=== PATIENT | female | born 1965 | race Asian ===

== ENCOUNTER 2017-04-25 13:27 | Emergency (ER) | payer MEDICAID ==
[2017-04-25] MEDS ORDERED: LORazepam 2 MG/ML SDV IVPUSH ONE (13:41)
[2017-04-25] MEDS ORDERED: Ondansetron 4 MG/2 ML SDV IVPUSH ONE (13:41)
[2017-04-25] MEDS ORDERED: Ketorolac 30 MG/ML SDV IVPUSH ONE (13:41)
[2017-04-25] MEDS ORDERED: Sodium Chloride 0.9% 1,000 ML IV ONE (13:41)
--- NOTE | 2017-04-25 14:39 | EDM.PDOC ---
ED HPI GENERAL MEDICAL PROBLEM - General Chief Complaint: Gastrointestinal Problem Stated Complaint: HEADACHE/NAUSEA/VOMITING Time Seen by Provider: 04/25/17 13:35 Source of Information: Reports: Patient History Limitations: Reports: No Limitations - History of Present Illness INITIAL COMMENTS - FREE TEXT/NARRATIVE: History of present illness: [51-year-old female comes in complaining of nausea vomiting and the worst headache of her life. He shouldn't is Macedonian speaking and attempted to communicate with her cruz Schmitt.] Review of systems: As per history of present illness and below otherwise all systems reviewed and negative. Past medical history: As per history of present illness and as reviewed below otherwise noncontributory. Surgical history: As per history of present illness and as reviewed below otherwise noncontributory. Social history: No reported history of drug or alcohol abuse. Family history: As per history of present illness and as reviewed below otherwise noncontributory. Physical exam: HEENT: Atraumatic, normocephalic, pupils reactive, negative for conjunctival pallor or scleral icterus, mucous membranes moist, throat clear, neck supple, nontender, trachea midline. Lungs: Clear to auscultation, breath sounds equal bilaterally, chest nontender. Heart: S1S2, regular, negative for clicks, rubs, or JVD. Abdomen: Soft, nondistended, nontender. Negative for masses or hepatosplenomegaly. Negative for costovertebral tenderness. Pelvis: Stable nontender. Genitourinary: Deferred. Rectal: Deferred. Extremities: Atraumatic, negative for cords or calf pain. Neurovascular unremarkable. Neuro: Awake, alert, oriented. Cranial nerves II through XII unremarkable. Cerebellum unremarkable. Motor and sensory unremarkable throughout. Exam nonfocal. Global assessment is benign save the subjective complaint of headache upon arrival. Patient indicates after the medication that her nausea as well as the migraine was improved but not gone. Patient tested for influenza and B which were negative patient's presentation and her H&P is consistent with a either a migraine versus a tension headache. Diagnostics: [CBC, CMP, influenza A and B, hCG, UA, CT of head without contrast] Therapeutics: [IV fluid, Zofran, Toradol, Ativan] Impression: [#1 nausea #2 vomiting #3 headache] Plan: [Follow-up with primary care] Definitive disposition and diagnosis as appropriate pending reevaluation and review of above. - Related Data Allergies Allergy/AdvReac Type Severity Reaction Status Date / Time No Known Allergies Allergy Verified 04/25/17 14:43 Home Meds: Home Meds Acetaminophen [Tylenol] 04/25/17 [History] Ibuprofen [Advil] 04/25/17 [History] MV,Ca,Min/FA/Herbal No.157 [Estroven Max Strength Caplet] 04/25/17 [History] diphenhydrAMINE [Benadryl] 04/25/17 [History] ED ROS GENERAL - Review of Systems Review Of Systems: See Below (See history of present illness) ED EXAM, GENERAL - Physical Exam Exam: See Below (See history of present illness) Course - Vital Signs Last Recorded V/S: Last Vital Signs Temp 36.3 C 04/25/17 14:41 Pulse 64 04/25/17 15:36 Resp 18 04/25/17 15:36 BP 141/72 H 04/25/17 15:36 Pulse Ox 100 04/25/17 15:36 - Orders/Labs/Meds Labs: Laboratory Tests 04/25/17 04/25/17 04/25/17 Range/Units 14:22 14:22 14:22 WBC 4.68 (4.0-11.0) K/uL RBC 5.26 (4.30-5.90) M/uL Hgb 13.2 (12.0-16.0) g/dL Hct 41.2 (36.0-46.0) % MCV 78.3 L (80.0-98.0) fL MCH 25.1 L (27.0-32.0) pg MCHC 32.0 (31.0-37.0) g/dL RDW Std Deviation 43.6 (28.0-62.0) fl RDW Coeff of Lulu 15 (11.0-15.0) % Plt Count 263 (150-400) K/uL MPV 9.70 (7.40-12.00) fL Neut % (Auto) 56.3 (48.0-80.0) % Lymph % (Auto) 35.0 (16.0-40.0) % Trigg % (Auto) 7.9 (0.0-15.0) % Eos % (Auto) 0.6 (0.0-7.0) % Baso % (Auto) 0.2 (0.0-1.5) % Neut # (Auto) 2.6 (1.4-5.7) K/uL Lymph # (Auto) 1.6 (0.6-2.4) K/uL Trigg # (Auto) 0.4 (0.0-0.8) K/uL Eos # (Auto) 0.0 (0.0-0.7) K/uL Baso # (Auto) 0.0 (0.0-0.1) K/uL Nucleated RBC % 0.0 /100WBC Nucleated RBCs # 0 K/uL Sodium 142 (136-146) mmol/L Potassium 4.0 (3.5-5.1) mmol/L Chloride 110 (98-110) mmol/L Carbon Dioxide 25 (21-31) mmol/L BUN 13 (6.0-23.0) mg/dL Creatinine 0.7 (0.6-1.5) mg/dL Est Cr Clr Drug Dosing TNP Estimated GFR (MDRD) > 60.0 ml/min Glucose 120 H (60-110) mg/dL Calcium 9.5 (8.8-10.8) mg/dL Total Bilirubin 0.3 (0.1-1.5) mg/dL AST 28 (5-40) IU/L ALT 42 (8-54) IU/L Alkaline Phosphatase 86 (40-150) Total Protein 7.7 (6.0-8.0) g/dL Albumin 3.9 (3.5-5.0) g/dL Globulin 3.8 H (2.0-3.5) g/dL Albumin/Globulin Ratio 1.0 L (1.3-2.8) HCG, Qual NEGATIVE (NEG) Meds: Medications Discontinued Medications Generic Name Dose Route Start Last Admin Trade Name Freq PRN Reason Stop Dose Admin Sodium Chloride 1,000 mls @ 999 mls/hr 04/25/17 13:41 04/25/17 15:25 Normal Saline IV 04/25/17 14:41 999 mls/hr STAT ONE Administration Ketorolac Tromethamine 30 mg 04/25/17 13:41 04/25/17 15:32 Toradol IVPUSH 04/25/17 13:42 30 mg ONETIME ONE Administration Lorazepam 1 mg 04/25/17 13:41 04/25/17 15:35 Ativan IVPUSH 04/25/17 13:42 1 mg ONETIME ONE Administration Ondansetron HCl 8 mg 04/25/17 13:41 04/25/17 15:25 Zofran IVPUSH 04/25/17 13:42 8 mg ONETIME ONE Administration Tramadol HCl 100 mg 04/25/17 16:16 04/25/17 16:31 Ultram PO 04/25/17 16:17 100 mg ONETIME ONE Administration Departure - Departure Time of Disposition: 16:39 Disposition: Home, Self-Care 01 Condition: Good Clinical Impression: Head ache, Nausea & vomiting Clinical Impression: (Ruled Out): Vomiting - Discharge Information Instructions: Nausea and Vomiting, Adult, [id number], Pain Medicine Instructions, [id number] Referrals: PCP,None [Primary Care Provider] - Forms: ED Department Discharge Additional Instructions: The following information is given to patients seen in the emergency department who are being discharged to home. This information is to outline your options for follow-up care. We provide all patients seen in our emergency department with a follow-up referral. The need for follow-up, as well as the timing and circumstances, are variable depending upon the specifics of your emergency department visit. If you don't have a primary care physician on staff, we will provide you with a referral. We always advise you to contact your personal physician following an emergency department visit to inform them of the circumstance of the visit and for follow-up with them and/or the need for any referrals to a consulting specialist. The emergency department will also refer you to a specialist when appropriate. This referral assures that you have the opportunity for follow-up care with a specialist. All of these measure are taken in an effort to provide you with optimal care, which includes your follow-up. Under all circumstances we always encourage you to contact your private physician who remains a resource for coordinating your care. When calling for follow-up care, please make the office aware that this follow-up is from your recent emergency room visit. If for any reason you are refused follow-up, please contact the [facility] Emergency Department at and asked to speak to the emergency department charge nurse. Take medication as directed Up with primary care provider in 2-3 days Return to ED as needed as discussed [facility] [address] [place] [id number]
[2017-04-25 14:48] LABS: CHLORIDE,CL 110 mmol/L (98-110); SODIUM,NA 142 mmol/L (136-146)
--- NOTE | 2017-04-25 15:13 | CT ---
EXAMINATION: Non contrast CT head. Coronal and sagittal reformats. HISTORY: Pain FINDINGS: No evidence of intra or extra axial hemorrhage, mass, midline shift, hydrocephalus or edema. No hypoattenuation changes in the major vascular territories to suggest acute infarct. No abnormal intracranial calcifications are detected. No evidence of substantial vascular calcificat ions. Paranasal sinuses and mastoid air cells are well aerated without substantial findings. The orbits and globes are symmetric. Pituitary fossa appears unremarkable. Calvarium is intact. No evidence of skull fracture. IMPRESSION: No acute intracranial findings.
[2017-04-25] MEDS ORDERED: traMADol 50 MG Tab PO ONE (16:16)
== END 2017-04-25 16:54 | disposition home or self-care (01) ==
LOC: MW.ED 13:27
DX: R11.2 Nausea with vomiting, unspecified (principal); R51 Headache
CPT/HCPCS: 70450; 80053; 84703; 85025; 87804; 96361; 96374; 96375; 99284; A9270; J1885; J2060; J2405; J7040

== ENCOUNTER 2017-04-27 18:46 | Emergency (ER) | payer MEDICAID ==
[2017-04-27] MEDS ORDERED: Ketorolac 30 MG/ML SDV IVPUSH ONE (19:00)
[2017-04-27] MEDS ORDERED: Sodium Chloride 0.9% 1,000 ML IV ONE (19:01)
[2017-04-27] MEDS ORDERED: diphenhydrAMINE 50 MG/ML SDV IVPUSH ONE (19:02)
[2017-04-27] MEDS ORDERED: Ondansetron 4 MG/2 ML SDV IVPUSH ONE (19:02)
[2017-04-27] MEDS ORDERED: Metoclopramide 10 MG/2 ML SDV IVPUSH ONE (19:02)
--- NOTE | 2017-04-27 19:02 | EDM.PDOC ---
ED HPI GENERAL MEDICAL PROBLEM - General Chief Complaint: Headache Stated Complaint: HEADACHE/VOMITING Time Seen by Provider: 04/27/17 18:54 - History of Present Illness INITIAL COMMENTS - FREE TEXT/NARRATIVE: HISTORY AND PHYSICAL: History of present illness: Patient 51-year-old female presents with concern headache nausea and vomiting she was seen several days prior to workup including CT scan that was negative she was discharged on tramadol returns now with headache nausea and vomiting no fever chills no trauma no neck stiffness or pain Review of systems: As per history of present illness and below otherwise all systems reviewed and negative. Past medical history: As per history of present illness and as reviewed below otherwise noncontributory. Surgical history: As per history of present illness and as reviewed below otherwise noncontributory. Social history: No reported history of drug or alcohol abuse. Family history: As per history of present illness and as reviewed below otherwise noncontributory. Physical exam: HEENT: Atraumatic, normocephalic, pupils reactive, negative for conjunctival pallor or scleral icterus, mucous membranes moist, throat clear, neck supple, nontender, trachea midline. Lungs: Clear to auscultation, breath sounds equal bilaterally, chest nontender. Heart: S1S2, regular, negative for clicks, rubs, or JVD. Abdomen: Soft, nondistended, nontender. Negative for masses or hepatosplenomegaly. Negative for costovertebral tenderness. Pelvis: Stable nontender. Genitourinary: Deferred. Rectal: Deferred. Extremities: Atraumatic, negative for cords or calf pain. Neurovascular unremarkable. Neuro: Awake, alert, oriented. Cranial nerves II through XII unremarkable. Cerebellum unremarkable. Motor and sensory unremarkable throughout. Exam nonfocal. Diagnostics: None Therapeutics: Normal saline 1 L bolus and Toradol 30 mg IV Zofran 4 mg IV Reglan 10 mg IV and Benadryl 50 mg IV Impression: #1 cephalgia Definitive disposition and diagnosis as appropriate pending reevaluation and review of above. - Related Data Allergies Allergy/AdvReac Type Severity Reaction Status Date / Time No Known Allergies Allergy Verified 04/27/17 18:55 Home Meds: Home Meds Acetaminophen [Tylenol] 04/25/17 [History] Ibuprofen [Advil] 04/25/17 [History] MV,Ca,Min/FA/Herbal No.157 [Estroven Max Strength Caplet] 04/25/17 [History] diphenhydrAMINE [Benadryl] 04/25/17 [History] Past Medical History - Past Health History Medical/Surgical History: Denies Medical/Surgical History [employer] History: Reports: , Other (See Below) Other OB/BYN History: states no period for 3 months now Psychiatric History: Reports: Depression, Other (See Below) Other Psychiatric History: states she "gets lonely and cries" Social & Family History - Family History Family Medical History: Noncontributory - Tobacco Use Smoking Status *Q: Never Smoker Second Hand Smoke Exposure: No - Caffeine Use Caffeine Use: Reports: None - Recreational Drug Use Recreational Drug Use: No ED ROS GENERAL - Review of Systems Review Of Systems: ROS reveals no pertinent complaints other than HPI. ED EXAM, GENERAL - Physical Exam Exam: See Below (See dictation) Course - Vital Signs Last Recorded V/S: Last Vital Signs Temp 36.1 C 04/27/17 18:46 Pulse 82 04/27/17 19:27 Resp 18 04/27/17 19:27 BP 136/79 04/27/17 19:27 Pulse Ox 100 04/27/17 19:27 - Orders/Labs/Meds Orders: Active Orders 24 hr Category Date Time Status Sodium Chloride 0.9% [Normal Saline] 1,000 ml Med 04/27/17 19:01 Active IV .Bolus Medication Orders Sodium Chloride (Normal Saline) 1,000 mls @ 999 mls/hr IV .Bolus ONE Stop: 04/27/17 20:01 Last Admin: 04/27/17 19:16 Dose: 999 mls/hr Meds: Medications Generic Name Dose Route Start Last Admin Trade Name Freq PRN Reason Stop Dose Admin Sodium Chloride 1,000 mls @ 999 mls/hr 04/27/17 19:01 04/27/17 19:16 Normal Saline IV 04/27/17 20:01 999 mls/hr .Bolus ONE Administration Discontinued Medications Generic Name Dose Route Start Last Admin Trade Name Freq PRN Reason Stop Dose Admin Diphenhydramine HCl 50 mg 04/27/17 19:02 04/27/17 19:23 Benadryl IVPUSH 04/27/17 19:03 50 mg ONETIME ONE Administration Ketorolac Tromethamine 30 mg 04/27/17 19:00 11/01/17 19:17 Toradol IVPUSH 04/27/17 19:01 30 mg ONETIME ONE Administration Metoclopramide HCl 10 mg 04/27/17 19:02 04/27/17 19:19 Reglan IVPUSH 04/27/17 19:03 10 mg ONETIME ONE Administration Ondansetron HCl 4 mg 04/27/17 19:02 04/27/17 19:17 Zofran IVPUSH 04/27/17 19:03 4 mg ONETIME ONE Administration Departure - Departure Time of Disposition: 19:43 Disposition: Home, Self-Care 01 Condition: Good Clinical Impression: Cephalgia - Discharge Information Referrals: PCP,None [Primary Care Provider] - Forms: ED Department Discharge Additional Instructions: The following information is given to patients seen in the emergency department who are being discharged to home. This information is to outline your options for follow-up care. We provide all patients seen in our emergency department with a follow-up referral. The need for follow-up, as well as the timing and circumstances, are variable depending upon the specifics of your emergency department visit. If you don't have a primary care physician on staff, we will provide you with a referral. We always advise you to contact your personal physician following an emergency department visit to inform them of the circumstance of the visit and for follow-up with them and/or the need for any referrals to a consulting specialist. The emergency department will also refer you to a specialist when appropriate. This referral assures that you have the opportunity for followup care with a specialist. All of these measure are taken in an effort to provide you with optimal care, which includes your followup. Under all circumstances we always encourage you to contact your private physician who remains a resource for coordinating your care. When calling for followup care, please make the office aware that this follow-up is from your recent emergency room visit. If for any reason you are refused follow-up, please contact the [facility] emergency department at and asked to speak to the emergency department charge nurse. [facility] Specialty [facility] - Neurology Professional Building [address] [place] [address], [address] [place] [address] Follow-up primary medical doctor in 24-48 hours call to schedule routine appointment with neurology clinic above return as needed as discussed - My Orders Last 24 Hours: My Active Orders 04/27/17 19:01 Sodium Chloride 0.9% [Normal Saline] 1,000 ml IV .Bolus - Assessment/Plan Last 24 Hours: My Active Orders 04/27/17 19:01 Sodium Chloride 0.9% [Normal Saline] 1,000 ml IV .Bolus
== END 2017-04-27 21:09 | disposition home or self-care (01) ==
LOC: MW.ED 18:46
DX: R51 Headache (principal)
CPT/HCPCS: 96361; 96374; 96375; 99284; J1200; J1885; J2405; J2765; J7040; 99282

== ENCOUNTER 2017-12-07 08:32 | Emergency (ER) | payer OTHER, SELFPAY ==
--- NOTE | 2017-12-07 08:51 | EDM.PDOC ---
ED HPI GENERAL MEDICAL PROBLEM - General Chief Complaint: Upper Extremity Injury/Pain Stated Complaint: NUMBNESS IN THE HAND Time Seen by Provider: 12/07/17 08:50 Source of Information: Reports: Patient - History of Present Illness INITIAL COMMENTS - FREE TEXT/NARRATIVE: HISTORY AND PHYSICAL: History of present illness: [Patient presents with a concern of possible cancer diagnosis She has been talking to a friend and she has had some weight loss over the last month or 2 of 15 pounds and her friend had similar situation and was diagnosed with cancer It appears that the patient has had lab there was performed from the local walk- in clinic and system with hyperthyroidism as well as an elevated A1c and glucose of 126 if these were fasting labs this would qualify for a diagnosis of diabetes She has no fever nausea vomiting chills sweats no chest pain shortness breath headache dizziness or palpitation no bowel or urine symptoms she complains of intermittent fingertip numbness as well as numbness to the tips of her toes ] Review of systems: As per history of present illness and below otherwise all systems reviewed and negative. Past medical history: As per history of present illness and as reviewed below otherwise noncontributory. Surgical history: As per history of present illness and as reviewed below otherwise noncontributory. Social history: No reported history of drug or alcohol abuse. Family history: As per history of present illness and as reviewed below otherwise noncontributory. Physical exam: HEENT: Atraumatic, normocephalic, pupils reactive, negative for conjunctival pallor or scleral icterus, mucous membranes moist, throat clear, neck supple, nontender, trachea midline. Lungs: Clear to auscultation, breath sounds equal bilaterally, chest nontender. Heart: S1S2, regular, negative for clicks, rubs, or JVD. Abdomen: Soft, nondistended, nontender. Negative for masses or hepatosplenomegaly. Negative for costovertebral tenderness. Pelvis: Stable nontender. Genitourinary: Deferred. Rectal: Deferred. Extremities: Atraumatic, negative for cords or calf pain. Neurovascular unremarkable. Neuro: Awake, alert, oriented. Cranial nerves II through XII unremarkable. Cerebellum unremarkable. Motor and sensory unremarkable throughout. Exam nonfocal. Diagnostics: [CBC CMP UA A1c ] Therapeutics: [Patient needs to follow-up with primary care and establish care ] Further thyroid workup Impression: [Hyperthyroid Weight loss per patient] Definitive disposition and diagnosis as appropriate pending reevaluation and review of above. left hand and foot Pain Score (Numeric/FACES): 1 - Related Data Allergies Allergy/AdvReac Type Severity Reaction Status Date / Time No Known Allergies Allergy Verified 12/07/17 08:48 Home Meds: Home Meds . [No Known Home Meds] 12/07/17 [History] Past Medical History - Past Health History Medical/Surgical History: Denies Medical/Surgical History [employer] History: Reports: , Other (See Below) Other OB/BYN History: states no period for 3 months now Psychiatric History: Reports: Depression, Other (See Below) Other Psychiatric History: states she "gets lonely and cries" Social & Family History - Family History Family Medical History: Noncontributory - Caffeine Use Caffeine Use: Reports: None Review of Systems - Review of Systems Review Of Systems: See Below ED EXAM, GENERAL - Physical Exam Exam: See Below Course - Vital Signs Last Recorded V/S: Last Vital Signs Temp 96.7 F 12/07/17 08:56 Pulse 99 12/07/17 08:56 Resp 18 12/07/17 08:56 BP 140/80 12/07/17 08:56 Pulse Ox 99 12/07/17 08:56 - Orders/Labs/Meds Orders: Active Orders 24 hr Category Date Time Status UA W/MICROSCOPIC [URIN] Stat Lab 12/07/17 09:07 Ordered Labs: Laboratory Tests 12/07/17 12/07/17 12/07/17 Range/Units 09:07 09:14 09:14 WBC 7.89 (4.0-11.0) K/uL RBC 5.22 (4.30-5.90) M/uL Hgb 15.1 (12.0-16.0) g/dL Hct 44.9 (36.0-46.0) % MCV 86.0 (80.0-98.0) fL MCH 28.9 (27.0-32.0) pg MCHC 33.6 (31.0-37.0) g/dL RDW Std Deviation 41.0 (28.0-62.0) fl RDW Coeff of Lulu 13 (11.0-15.0) % Plt Count 280 (150-400) K/uL MPV 9.00 (7.40-12.00) fL Neut % (Auto) 65.3 (48.0-80.0) % Lymph % (Auto) 28.4 (16.0-40.0) % [place] % (Auto) 5.4 (0.0-15.0) % Eos % (Auto) 0.6 (0.0-7.0) % Baso % (Auto) 0.3 (0.0-1.5) % Neut # (Auto) 5.2 (1.4-5.7) K/uL Lymph # (Auto) 2.2 (0.6-2.4) K/uL [place] # (Auto) 0.4 (0.0-0.8) K/uL Eos # (Auto) 0.1 (0.0-0.7) K/uL Baso # (Auto) 0.0 (0.0-0.1) K/uL Nucleated RBC % 0.0 /100WBC Nucleated RBCs # 0 K/uL Sodium 139 (136-145) mmol/L Potassium 4.1 (3.5-5.1) mmol/L Chloride 105 (98-107) mmol/L Carbon Dioxide 28.4 (21.0-32.0) mmol/L BUN 15 (7.0-18.0) mg/dL Creatinine 0.8 (0.6-1.0) mg/dL Est Cr Clr Drug Dosing 58.84 mL/min Estimated GFR (MDRD) > 60.0 ml/min Glucose 101 (74-106) mg/dL Hemoglobin A1c (4.5-6.2) % Calcium 9.8 (8.5-10.1) mg/dL Total Bilirubin 0.4 (0.2-1.0) mg/dL AST 24 (15-37) IU/L ALT 34 (14-63) IU/L Alkaline Phosphatase 119 H (46-116) U/L Total Protein 8.3 H (6.4-8.2) g/dL Albumin 3.8 (3.4-5.0) g/dL Globulin 4.5 H (2.0-3.5) g/dL Albumin/Globulin Ratio 0.8 L (1.3-2.8) Urine Color YELLOW Urine Appearance CLEAR Urine pH 5.5 (5.0-8.0) Ur Specific [place] 1.010 (1.001-1.035) Urine Protein NEGATIVE (NEGATIVE) mg/dL Urine Glucose (UA) NEGATIVE (NEGATIVE) mg/dL Urine Ketones NEGATIVE (NEGATIVE) mg/dL Urine Occult Blood TRACE-INTACT (NEGATIVE) Urine Nitrite NEGATIVE (NEGATIVE) Urine Bilirubin NEGATIVE (NEGATIVE) Urine Urobilinogen 0.2 (<2.0) EU/dL Ur Leukocyte Esterase NEGATIVE (NEGATIVE) Urine RBC 0-1 (0-2/HPF) Urine WBC 0-1 (0-5/HPF) Ur Epithelial Cells OCCASIONAL (NONE-FEW) Urine Bacteria RARE (NEGATIVE) Urine Mucus LIGHT (NONE-MOD) 12/07/17 Range/Units 09:14 WBC (4.0-11.0) K/uL RBC (4.30-5.90) M/uL Hgb (12.0-16.0) g/dL Hct (36.0-46.0) % MCV (80.0-98.0) fL MCH (27.0-32.0) pg MCHC (31.0-37.0) g/dL RDW Std Deviation (28.0-62.0) fl RDW Coeff of [place]ulu (11.0-15.0) % Plt Count (150-400) K/uL MPV (7.40-12.00) fL Neut % (Auto) (48.0-80.0) % Lymph % (Auto) (16.0-40.0) % [place] % (Auto) (0.0-15.0) % Eos % (Auto) (0.0-7.0) % Baso % (Auto) (0.0-1.5) % Neut # (Auto) (1.4-5.7) K/uL Lymph # (Auto) (0.6-2.4) K/uL [place] # (Auto) (0.0-0.8) K/uL Eos # (Auto) (0.0-0.7) K/uL Baso # (Auto) (0.0-0.1) K/uL Nucleated RBC % /100WBC Nucleated RBCs # K/uL Sodium (136-145) mmol/L Potassium (3.5-5.1) mmol/L Chloride (98-107) mmol/L Carbon Dioxide (21.0-32.0) mmol/L BUN (7.0-18.0) mg/dL Creatinine (0.6-1.0) mg/dL Est Cr Clr Drug Dosing mL/min Estimated GFR (MDRD) ml/min Glucose (74-106) mg/dL Hemoglobin A1c 5.6 (4.5-6.2) % Calcium (8.5-10.1) mg/dL Total Bilirubin (0.2-1.0) mg/dL AST (15-37) IU/L ALT (14-63) IU/L Alkaline Phosphatase (46-116) U/L Total Protein (6.4-8.2) g/dL Albumin (3.4-5.0) g/dL Globulin (2.0-3.5) g/dL Albumin/Globulin Ratio (1.3-2.8) Urine Color Urine Appearance Urine pH (5.0-8.0) Ur Specific [place] (1.001-1.035) Urine Protein (NEGATIVE) mg/dL Urine Glucose (UA) (NEGATIVE) mg/dL Urine Ketones (NEGATIVE) mg/dL Urine Occult Blood (NEGATIVE) Urine Nitrite (NEGATIVE) Urine Bilirubin (NEGATIVE) Urine Urobilinogen (<2.0) EU/dL Ur Leukocyte Esterase (NEGATIVE) Urine RBC (0-2/HPF) Urine WBC (0-5/HPF) Ur Epithelial Cells (NONE-FEW) Urine Bacteria (NEGATIVE) Urine Mucus (NONE-MOD) Departure - Departure Time of Disposition: 10:09 Disposition: Home, Self-Care 01 Condition: Good Clinical Impression: Hyperthyroidism - Discharge Information Referrals: PCP,None [Primary Care Provider] - Forms: ED Department Discharge Additional Instructions: Follow-up and establish care with a primary care provider You may call the number bel;ow to schedule appropriate follow-up Labs from a month ago has abnormal thyroid findings as well as evidence of prediabetes, if these labs were performed as fasting for more than 8 hours, that initial test would be sufficient to diagnose diabetes [facility] [address] [place] [id number] The following information is given to patients seen in the emergency department who are being discharged to home. This information is to outline your options for follow-up care. We provide all patients seen in our emergency department with a follow-up referral. The need for follow-up, as well as the timing and circumstances, are variable depending upon the specifics of your emergency department visit. If you don't have a primary care physician on staff, we will provide you with a referral. We always advise you to contact your personal physician following an emergency department visit to inform them of the circumstance of the visit and for follow-up with them and/or the need for any referrals to a consulting specialist. The emergency department will also refer you to a specialist when appropriate. This referral assures that you have the opportunity for follow-up care with a specialist. All of these measure are taken in an effort to provide you with optimal care, which includes your follow-up. Under all circumstances we always encourage you to contact your private physician who remains a resource for coordinating your care. When calling for follow-up care, please make the office aware that this follow-up is from your recent emergency room visit. If for any reason you are refused follow-up, please contact the [facility] emergency department at and asked to speak to the emergency department charge nurse. - My Orders Last 24 Hours: My Active Orders 12/07/17 09:07 UA W/MICROSCOPIC [URIN] Stat - Assessment/Plan Last 24 Hours: My Active Orders 12/07/17 09:07 UA W/MICROSCOPIC [URIN] Stat
[2017-12-07 09:47] LABS: CHLORIDE,CL 105 mmol/L (98-107); SODIUM,NA 139 mmol/L (136-145)
== END 2017-12-07 10:28 | disposition home or self-care (01) ==
LOC: MW.ED 08:32
DX: E05.90 Thyrotoxicosis, unspecified without thyrotoxic crisis or storm (principal)
CPT/HCPCS: 36415; 80053; 81001; 83036; 85025; 99283

== ENCOUNTER 2018-11-13 21:39 | Emergency (ER) | payer MEDICAID ==
[2018-11-13] MEDS ORDERED: Sodium Chloride 0.9% 1,000 ML IV ONE (21:49)
--- NOTE | 2018-11-13 21:51 | EDM.PDOC ---
ED HPI GENERAL MEDICAL PROBLEM - General Chief Complaint: Gastrointestinal Problem Stated Complaint: BLACK STOOL Time Seen by Provider: 11/13/18 21:45 - History of Present Illness INITIAL COMMENTS - FREE TEXT/NARRATIVE: HISTORY AND PHYSICAL: History of present illness: Patient 52-year-old female presents with concern of nausea vomiting and diarrhea last 2-3 days the vomiting as resolved but the diarrhea has persisted she equivocates regarding fever she's had crampy discomfort but no localized abdominal pain. Review of systems: As per history of present illness and below otherwise all systems reviewed and negative. Past medical history: As per history of present illness and as reviewed below otherwise noncontributory. Surgical history: As per history of present illness and as reviewed below otherwise noncontributory. Social history: No reported history of drug or alcohol abuse. Family history: As per history of present illness and as reviewed below otherwise noncontributory. Physical exam: HEENT: Atraumatic, normocephalic, pupils reactive, negative for conjunctival pallor or scleral icterus, mucous membranes moist, throat clear, neck supple, nontender, trachea midline. Lungs: Clear to auscultation, breath sounds equal bilaterally, chest nontender. Heart: S1S2, regular, negative for clicks, rubs, or JVD. Abdomen: Soft, nondistended, nontender. Negative for masses or hepatosplenomegaly. Negative for costovertebral tenderness. Pelvis: Stable nontender. Genitourinary: Deferred. Rectal: Deferred. Extremities: Atraumatic, negative for cords or calf pain. Neurovascular unremarkable. Neuro: Awake, alert, oriented. Cranial nerves II through XII unremarkable. Cerebellum unremarkable. Motor and sensory unremarkable throughout. Exam nonfocal. Diagnostics: CBC CMP hCG stool for C&S O&P and C. difficile Hemoccult CT abdomen and pelvis without contrast Therapeutics: Saline 1 L bolus Impression: #1 gastroenteritis Definitive disposition and diagnosis as appropriate pending reevaluation and review of above. - Related Data Allergies Allergy/AdvReac Type Severity Reaction Status Date / Time No Known Allergies Allergy Verified 11/13/18 22:04 Home Meds: Home Meds . 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 B[employer]ING [employer] STITCHER History: states no period for 3 months now Musculoskeletal History: Reports: None Neurological History: Reports: None Psychiatric History: Reports: Depression, Other (See Below) Other Psychiatric History: states she "gets lonely and cries" Endocrine/Metabolic History: Reports: None Hematologic History: Reports: None Immunologic History: Reports: None Oncologic (Cancer) History: Reports: None Dermatologic History: Reports: None - Past Surgical History Head Surgeries/Procedures: Reports: None HEENT Surgical History: Reports: None Cardiovascular Surgical History: Reports: None Respiratory Surgical History: Reports: None GI Surgical History: Reports: None Female Surgical History: Reports: None Endocrine Surgical History: Reports: None Neurological Surgical History: Reports: None Musculoskeletal Surgical History: Reports: None Oncologic Surgical History: Reports: None Dermatological Surgical History: Reports: None Social & Family History - Family History Family Medical History: Noncontributory - Caffeine Use Caffeine Use: Reports: None ED ROS GENERAL - Review of Systems Review Of Systems: ROS reveals no pertinent complaints other than HPI. ED EXAM, GENERAL - Physical Exam Exam: See Below (See dictation) Course - Vital Signs Last Recorded V/S: Last Vital Signs Temp 36.6 C 11/13/18 21:39 Pulse 76 11/13/18 21:39 Resp 18 11/13/18 21:39 BP 136/81 11/13/18 21:39 Pulse Ox 97 11/13/18 21:39 - Orders/Labs/Meds Orders: Active Orders 24 hr Category Date Time Status CDIFF TOX A+B [OP] Stat Lab 11/13/18 22:10 Received CULTURE STOOL + CAMPY+SHIGATOX [RM] Stat Lab 11/13/18 22:10 Results HCG QUALITATIVE,URINE [URCHEM] Stat Lab 11/13/18 21:50 Ordered OVA & PARASITES BY IMMUNOASSAY [MREF] Stat Lab 11/13/18 22:10 Received UA RFX DEEP AND CULT IF INDIC [URIN] Stat Lab 11/13/18 21:59 Ordered Isolation [COMM] Stat Oth 11/13/18 21:51 Ordered Labs: Laboratory Tests 11/13/18 11/13/18 Range/Units 21:54 21:54 WBC 5.69 (4.0-11.0) K/uL RBC 4.92 (4.30-5.90) M/uL Hgb 14.4 (12.0-16.0) g/dL Hct 44.1 (36.0-46.0) % MCV 89.6 (80.0-98.0) fL MCH 29.3 (27.0-32.0) pg MCHC 32.7 (31.0-37.0) g/dL RDW Std Deviation 41.9 (28.0-62.0) fl RDW Coeff of Lulu 13 (11.0-15.0) % Plt Count 233 (150-400) K/uL MPV 9.10 (7.40-12.00) fL Neut % (Auto) 61.8 (48.0-80.0) % Lymph % (Auto) 28.1 (16.0-40.0) % [place] % (Auto) 9.0 (0.0-15.0) % Eos % (Auto) 0.7 (0.0-7.0) % Baso % (Auto) 0.4 (0.0-1.5) % Neut # (Auto) 3.5 (1.4-5.7) K/uL Lymph # (Auto) 1.6 (0.6-2.4) K/uL [place] # (Auto) 0.5 (0.0-0.8) K/uL Eos # (Auto) 0.0 (0.0-0.7) K/uL Baso # (Auto) 0.0 (0.0-0.1) K/uL Nucleated RBC % 0.0 /100WBC Nucleated RBCs # 0 K/uL Sodium 140 (136-145) mmol/L Potassium 3.6 (3.5-5.1) mmol/L Chloride 105 (98-107) mmol/L Carbon Dioxide 24.8 (21.0-32.0) mmol/L BUN 17 (7.0-18.0) mg/dL Creatinine 0.8 (0.6-1.0) mg/dL Est Cr Clr Drug Dosing TNP Estimated GFR (MDRD) > 60.0 ml/min Glucose 98 (74-106) mg/dL Calcium 8.8 (8.5-10.1) mg/dL Total Bilirubin 0.2 (0.2-1.0) mg/dL AST 30 (15-37) IU/L ALT 30 (14-63) IU/L Alkaline Phosphatase 97 (46-116) U/L Total Protein 7.7 (6.4-8.2) g/dL Albumin 3.6 (3.4-5.0) g/dL Globulin 4.1 H (2.6-4.0) g/dL Albumin/Globulin Ratio 0.9 (0.9-1.6) Meds: Medications Discontinued Medications Generic Name Dose Route Start Last Admin Trade Name Freq PRN Reason Stop Dose Admin Sodium Chloride 1,000 mls @ 999 mls/hr 11/13/18 21:49 11/13/18 22:22 Normal Saline IV 11/13/18 22:49 999 mls/hr BOLUS ONE Administration Departure - Departure Time of Disposition: 23:09 Disposition: Home, Self-Care 01 Condition: Good Clinical Impression: Gastroenteritis - Discharge Information Referrals: PCP,None [Primary Care Provider] - Forms: ED Department Discharge Additional Instructions: The following information is given to patients seen in the emergency department who are being discharged to home. This information is to outline your options for follow-up care. We provide all patients seen in our emergency department with a follow-up referral. The need for follow-up, as well as the timing and circumstances, are variable depending upon the specifics of your emergency department visit. If you don't have a primary care physician on staff, we will provide you with a referral. We always advise you to contact your personal physician following an emergency department visit to inform them of the circumstance of the visit and for follow-up with them and/or the need for any referrals to a consulting specialist. The emergency department will also refer you to a specialist when appropriate. This referral assures that you have the opportunity for followup care with a specialist. All of these measure are taken in an effort to provide you with optimal care, which includes your followup. Under all circumstances we always encourage you to contact your private physician who remains a resource for coordinating your care. When calling for followup care, please make the office aware that this follow-up is from your recent emergency room visit. If for any reason you are refused follow-up, please contact the [facility] emergency department at and asked to speak to the emergency department charge nurse. Cipro/Flagyl as prescribed push fluids avoid dairy 72 hours follow-up primary medical doctor and return as needed as discussed - My Orders Last 24 Hours: My Active Orders 11/13/18 21:50 HCG QUALITATIVE,URINE [URCHEM] Stat 11/13/18 21:51 Isolation [COMM] Stat 11/13/18 21:59 UA RFX DEEP AND CULT IF INDIC [URIN] Stat 11/13/18 22:10 CDIFF TOX A+B [OP] Stat CULTURE STOOL + CAMPY+SHIGATOX [RM] Stat OVA & PARASITES BY IMMUNOASSAY [MREF] Stat - Assessment/Plan Last 24 Hours: My Active Orders 11/13/18 21:50 HCG QUALITATIVE,URINE [URCHEM] Stat 11/13/18 21:51 Isolation [COMM] Stat 11/13/18 21:59 UA RFX DEEP AND CULT IF INDIC [URIN] Stat 11/13/18 22:10 CDIFF TOX A+B [OP] Stat CULTURE STOOL + CAMPY+SHIGATOX [RM] Stat OVA & PARASITES BY IMMUNOASSAY [MREF] Stat
[2018-11-13 22:27] LABS: CHLORIDE,CL 105 mmol/L (98-107); SODIUM,NA 140 mmol/L (136-145)
--- NOTE | 2018-11-13 22:46 | CT ---
INDICATION: Abdominal pain TECHNIQUE: CT abdomen and pelvis without contrast. COMPARISON: None FINDINGS: Lower chest: Unremarkable. Liver: 8 mm simple hepatic cyst. Spleen: Unremarkable. Pancreas: Unremarkable. Gallbladder and bile ducts: Unremarkable. Adrenal glands: Unremarkable. Kidneys: Unremarkable. No kidney or ureteral stones and no hydronephrosis. GI tract: There is fluid within nondistended loops of small bowel and right colon. Appendix is normal. Vascular structures: Unremarkable. Lymph nodes: Unremarkable. Miscellaneous: Unremarkable. No free air or significant free fluid. Pelvic Organs: Unremarkable. Bones: Unremarkable for age. IMPRESSION: No renal stone or hydronephrosis. Fluid within nondistended loops of small bowel and right colon suggesting enteritis. Please note that all CT scans at this facility use dose modulation, iterative reconstruction, and/or weight-based dosing when appropriate to reduce radiation dose to as low as reasonably achievable. Dictated by Juany Thomas MD @ Nov 13 2018 10:44PM Signed by Dr. Juany Thomas @ Nov 13 2018 10:44PM
== END 2018-11-13 23:24 | disposition home or self-care (01) ==
LOC: MW.ED 21:39
DX: K52.9 Noninfective gastroenteritis and colitis, unspecified (principal); F32.9 Major depressive disorder, single episode, unspecified
CPT/HCPCS: 36415; 74176; 80053; 82272; 85025; 87046; 87324; 87328; 87329; 96360; 99284; J7040; 87899

== ENCOUNTER 2019-05-03 11:21 | Emergency (ER) | payer MEDICAID ==
[2019-05-03] MEDS ORDERED: Sodium Chloride 0.9% 2.5 ML Syringe FLUSH PRN (11:41)
[2019-05-03] MEDS ORDERED: Sodium Chloride 0.9% 10 ML Syringe FLUSH PRN (11:41)
[2019-05-03] MEDS ORDERED: Ketorolac 30 MG/ML SDV IVPUSH ONE (11:45)
[2019-05-03] MEDS ORDERED: Ondansetron 4 MG/2 ML SDV IVPUSH ONE (11:45)
[2019-05-03] MEDS ORDERED: Sodium Chloride 0.9% 1,000 ML IV ONE ×2 (11:45→13:07)
[2019-05-03] MEDS ORDERED: cefTRIAXone 1 GM in Premix Bag 1 BAG IV ONE (12:40)
[2019-05-03 12:47] LABS: BLOOD UREA NITROGEN,BUN 14 mg/dL (7.0-18.0); CHLORIDE,CL 104 mmol/L (98-107); GLUCOSE RANDOM 117 mg/dL (74-106); POTASSIUM,K 3.8 mmol/L (3.5-5.1); SODIUM,NA 142 mmol/L (136-145)
--- NOTE | 2019-05-03 13:20 | EDM.PDOC ---
ED HPI GENERAL MEDICAL PROBLEM - General Chief Complaint: Genitourinary Problem Stated Complaint: PELVIC PAIN Time Seen by Provider: 05/03/19 11:31 Source of Information: Reports: Patient History Limitations: Reports: No Limitations - History of Present Illness INITIAL COMMENTS - FREE TEXT/NARRATIVE: History of present illness: []Patient complains of severe pain when she urinates and bleeding from "everywhere". She passed out in the lobby of her doctor's office.she was then transferred to the ER for further evaluation. She complains of lower abdominal pain and severe pain with urination, dizziness, headache, nausea and vomiting. Review of systems: As per history of present illness and below otherwise all systems reviewed and negative. Past medical history: As per history of present illness and as reviewed below otherwise noncontributory. Surgical history: As per history of present illness and as reviewed below otherwise noncontributory. Social history: No reported history of drug or alcohol abuse. Family history: As per history of present illness and as reviewed below otherwise noncontributory. Physical exam: General: Well developed, well nourished in NAD HEENT: Atraumatic, normocephalic, pupils reactive, negative for conjunctival pallor or scleral icterus, mucous membranes moist, throat clear, neck supple, nontender, trachea midline. Lungs: Clear to auscultation, breath sounds equal bilaterally, chest nontender. Heart: S1S2, regular, negative for clicks, rubs, or JVD. Abdomen: NABS, Soft, nondistended, nontender. Negative for masses or hepatosplenomegaly. Negative for costovertebral tenderness. Pelvis: Stable nontender. Genitourinary: Deferred. Rectal: Deferred. Extremities: Atraumatic, negative for cords or calf pain. Neurovascular unremarkable. Neuro: Awake, alert, oriented. Cranial nerves II through XII unremarkable. Cerebellum unremarkable. Motor and sensory unremarkable throughout. Exam nonfocal. Skin:warm and dry Diagnostics: catheter UA CBC, chemistry, type and screen and culture, CT abdomen and pelvis Therapeutics: IV hydration, ceftriaxone ED Course: improved Impression: pyelonephritis Prescriptions: bactrim DS, pyridium Plan: Take meds as directed, follow up with your primary care physician, return to ER if symptoms worsen or change. Definitive disposition and diagnosis as appropriate pending reevaluation and review of above. low abd Pain Score (Numeric/FACES): 10 - Related Data Allergies Allergy/AdvReac Type Severity Reaction Status Date / Time No Known Allergies Allergy Verified 05/03/19 11:38 Home Meds: Home Meds Phenazopyridine HCl [Pyridium] 200 mg PO TID #9 tablet 05/03/19 [Rx] Sulfamethoxazole/Trimethoprim [Bactrim Ds Tablet] 1 each PO BID #20 tablet 05/03 [Rx] Past Medical History - Past Health History Medical/Surgical History: Denies Medical/Surgical History HEENT History: Reports: None Cardiovascular History: Reports: None Respiratory History: Reports: None Gastrointestinal History: Reports: None Genitourinary History: Reports: None 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 SUPERVISOR 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: Reports: , Other (See Below) Other RESIDENTIAL SUPERVISOR History: states no period for 3 months now Musculoskeletal History: Reports: None Neurological History: Reports: None Psychiatric History: Reports: Depression, Other (See Below) Other Psychiatric History: states she "gets lonely and cries" Endocrine/Metabolic History: Reports: None Hematologic History: Reports: None Immunologic History: Reports: None Oncologic (Cancer) History: Reports: None Dermatologic History: Reports: None - Past Surgical History Head Surgeries/Procedures: Reports: None HEENT Surgical History: Reports: None Cardiovascular Surgical History: Reports: None Respiratory Surgical History: Reports: None GI Surgical History: Reports: None Female Surgical History: Reports: None Endocrine Surgical History: Reports: None Neurological Surgical History: Reports: None Musculoskeletal Surgical History: Reports: None Oncologic Surgical History: Reports: None Dermatological Surgical History: Reports: None Social & Family History - Family History Family Medical History: Noncontributory - Tobacco Use Smoking Status *Q: Never Smoker - Caffeine Use Caffeine Use: Reports: None - Recreational Drug Use Recreational Drug Use: No ED ROS GENERAL - Review of Systems Review Of Systems: See Below ED EXAM, RENAL/ - Physical Exam Exam: See Below Course - Vital Signs Last Recorded V/S: Last Vital Signs Temp 96.9 F 05/03/19 11:36 Pulse 78 05/03/19 14:07 Resp 17 05/03/19 14:07 BP 96/56 L 05/03/19 14:07 Pulse Ox 100 05/03/19 14:07 - Orders/Labs/Meds Orders: Active Orders 24 hr Category Date Time Status CULTURE URINE [RM] Routine Lab 05/03/19 12:30 Received Sodium Chloride 0.9% [Saline Flush] Med 05/03/19 11:41 Active 10 ml FLUSH ASDIRECTED PRN Sodium Chloride 0.9% [Saline Flush] Med 05/03/19 11:41 Active 2.5 ml FLUSH ASDIRECTED PRN Saline Lock Insert [OM.PC] Stat Oth 05/03/19 11:42 Ordered Medication Orders Sodium Chloride (Saline Flush) 10 ml FLUSH ASDIRECTED PRN PRN Reason: Keep Vein Open Last Admin: 05/03/19 13:39 Dose: 10 ml Sodium Chloride (Saline Flush) 2.5 ml FLUSH ASDIRECTED PRN PRN Reason: Keep Vein Open Last Admin: 05/03/19 13:39 Dose: 2.5 ml Labs: Laboratory Tests 05/03/19 05/03/19 05/03/19 Range/Units 11:40 12:03 12:03 WBC 14.62 H (4.0-11.0) K/uL RBC 5.02 (4.30-5.90) M/uL Hgb 14.8 (12.0-16.0) g/dL Hct 45.7 (36.0-46.0) % MCV 91.0 (80.0-98.0) fL MCH 29.5 (27.0-32.0) pg MCHC 32.4 (31.0-37.0) g/dL RDW Std Deviation 42.6 (28.0-62.0) fl RDW Coeff of Lulu 13 (11.0-15.0) % Plt Count 253 (150-400) K/uL MPV 9.30 (7.40-12.00) fL Neut % (Auto) 80.2 H (48.0-80.0) % Lymph % (Auto) 14.5 L (16.0-40.0) % Saline % (Auto) 5.0 (0.0-15.0) % Eos % (Auto) 0.2 (0.0-7.0) % Baso % (Auto) 0.1 (0.0-1.5) % Neut # (Auto) 11.7 H (1.4-5.7) K/uL Lymph # (Auto) 2.1 (0.6-2.4) K/uL Saline # (Auto) 0.7 (0.0-0.8) K/uL Eos # (Auto) 0.0 (0.0-0.7) K/uL Baso # (Auto) 0.0 (0.0-0.1) K/uL Nucleated RBC % 0.0 /100WBC Nucleated RBCs # 0 K/uL Sodium 142 (136-145) mmol/L Potassium 3.8 (3.5-5.1) mmol/L Chloride 104 (98-107) mmol/L Carbon Dioxide 28.0 (21.0-32.0) mmol/L BUN 14 (7.0-18.0) mg/dL Creatinine 0.8 (0.6-1.0) mg/dL Est Cr Clr Drug Dosing 59.09 mL/min Estimated GFR (MDRD) > 60.0 ml/min Glucose 117 H (74-106) mg/dL Calcium 9.2 (8.5-10.1) mg/dL Total Bilirubin 0.2 (0.2-1.0) mg/dL AST 22 (15-37) IU/L ALT 28 (14-63) IU/L Alkaline Phosphatase 109 (46-116) U/L Total Protein 8.2 (6.4-8.2) g/dL Albumin 3.7 (3.4-5.0) g/dL Globulin 4.5 H (2.6-4.0) g/dL Albumin/Globulin Ratio 0.8 L (0.9-1.6) Urine Color RED Urine Appearance BLOODY Urine pH 8.0 (5.0-8.0) Ur Specific [place] 1.020 (1.001-1.035) Urine Protein >=300 H (NEGATIVE) mg/dL Urine Glucose (UA) NEGATIVE (NEGATIVE) mg/dL Urine Ketones TRACE H (NEGATIVE) mg/dL Urine Occult Blood LARGE H (NEGATIVE) Urine Nitrite POSITIVE H (NEGATIVE) Urine Bilirubin SMALL H (NEGATIVE) Urine Ictotest Urine Urobilinogen 1.0 (<2.0) EU/dL Ur Leukocyte Esterase MODERATE H (NEGATIVE) Urine RBC TOO NUMEROUS TO CT H (0-2/HPF) Urine WBC 10-15 (0-5/HPF) Ur Epithelial Cells OCCASIONAL (NONE-FEW) Urine Bacteria FEW (NEGATIVE) Blood Type Antibody Screen 05/03/19 05/03/19 Range/Units 12:03 12:30 WBC (4.0-11.0) K/uL RBC (4.30-5.90) M/uL Hgb (12.0-16.0) g/dL Hct (36.0-46.0) % MCV (80.0-98.0) fL MCH (27.0-32.0) pg MCHC (31.0-37.0) g/dL RDW Std Deviation (28.0-62.0) fl RDW Coeff of Lulu (11.0-15.0) % Plt Count (150-400) K/uL MPV (7.40-12.00) fL Neut % (Auto) (48.0-80.0) % Lymph % (Auto) (16.0-40.0) % Saline % (Auto) (0.0-15.0) % Eos % (Auto) (0.0-7.0) % Baso % (Auto) (0.0-1.5) % Neut # (Auto) (1.4-5.7) K/uL Lymph # (Auto) (0.6-2.4) K/uL Saline # (Auto) (0.0-0.8) K/uL Eos # (Auto) (0.0-0.7) K/uL Baso # (Auto) (0.0-0.1) K/uL Nucleated RBC % /100WBC Nucleated RBCs # K/uL Sodium (136-145) mmol/L Potassium (3.5-5.1) mmol/L Chloride (98-107) mmol/L Carbon Dioxide (21.0-32.0) mmol/L BUN (7.0-18.0) mg/dL Creatinine (0.6-1.0) mg/dL Est Cr Clr Drug Dosing mL/min Estimated GFR (MDRD) ml/min Glucose (74-106) mg/dL Calcium (8.5-10.1) mg/dL Total Bilirubin (0.2-1.0) mg/dL AST (15-37) IU/L ALT (14-63) IU/L Alkaline Phosphatase (46-116) U/L Total Protein (6.4-8.2) g/dL Albumin (3.4-5.0) g/dL Globulin (2.6-4.0) g/dL Albumin/Globulin Ratio (0.9-1.6) Urine Color RED Urine Appearance CLOUDY Urine pH 8.0 (5.0-8.0) Ur Specific [place] 1.020 (1.001-1.035) Urine Protein >=300 H (NEGATIVE) mg/dL Urine Glucose (UA) NEGATIVE (NEGATIVE) mg/dL Urine Ketones TRACE H (NEGATIVE) mg/dL Urine Occult Blood LARGE H (NEGATIVE) Urine Nitrite POSITIVE H (NEGATIVE) Urine Bilirubin MODERATE H (NEGATIVE) Urine Ictotest NEGATIVE Urine Urobilinogen 2.0 H (<2.0) EU/dL Ur Leukocyte Esterase LARGE H (NEGATIVE) Urine RBC TOO NUMEROUS TO CT H (0-2/HPF) Urine WBC 15-20 (0-5/HPF) Ur Epithelial Cells RARE (NONE-FEW) Urine Bacteria RARE (NEGATIVE) Blood Type O POSITIVE Antibody Screen NEGATIVE Meds: Medications Generic Name Dose Route Start Last Admin Trade Name Chi PRN Reason Stop Dose Admin Sodium Chloride 10 ml 05/03/19 11:41 05/03/19 13:39 Saline Flush FLUSH 10 ml ASDIRECTED PRN Administration Keep Vein Open Sodium Chloride 2.5 ml 05/03/19 11:41 05/03/19 13:39 Saline Flush FLUSH 2.5 ml ASDIRECTED PRN Administration Keep Vein Open Discontinued Medications Generic Name Dose Route Start Last Admin Trade Name Chi PRN Reason Stop Dose Admin Sodium Chloride 1,000 mls @ 999 mls/hr 05/03/19 11:45 05/03/19 12:06 Normal Saline IV 05/03/19 12:45 999 mls/hr .Bolus ONE Administration Ceftriaxone Sodium/Dextrose 1 50 mls @ 100 mls/hr 05/03/19 12:40 05/03/19 13: 39 gm/ Premix IV 05/03/19 13:09 100 mls/hr ONETIME ONE Administration Sodium Chloride 1,000 mls @ 999 mls/hr 05/03/19 13:07 05/03/19 13:39 Normal Saline IV 05/03/19 14:07 999 mls/hr .Bolus ONE Administration Ketorolac Tromethamine 30 mg 05/03/19 11:45 05/03/19 12:07 Toradol IVPUSH 05/03/19 11:46 30 mg ONETIME ONE Administration Ondansetron HCl 4 mg 05/03/19 11:45 05/03/19 12:08 Zofran IVPUSH 05/03/19 11:46 4 mg ONETIME ONE Administration Departure - Departure Time of Disposition: 14:09 Disposition: Home, Self-Care 01 Condition: Good Clinical Impression: UTI (urinary tract infection) Qualifiers: Urinary tract infection type: acute pyelonephritis Qualified Code(s): N10 - Acute pyelonephritis - Discharge Information *PRESCRIPTION DRUG MONITORING PROGRAM REVIEWED*: No *COPY OF PRESCRIPTION DRUG MONITORING REPORT IN PATIENT ARLYN: No Prescriptions: Phenazopyridine HCl [Pyridium] 200 mg PO TID #9 tablet Sulfamethoxazole/Trimethoprim [Bactrim Ds Tablet] 1 each PO BID #20 tablet Referrals: PCP,Unknown [Primary Care Provider] - Forms: ED Department Discharge - My Orders Last 24 Hours: My Active Orders 05/03/19 11:41 Sodium Chloride 0.9% [Saline Flush] 10 ml FLUSH ASDIRECTED PRN Sodium Chloride 0.9% [Saline Flush] 2.5 ml FLUSH ASDIRECTED PRN 05/03/19 11:42 Saline Lock Insert [OM.PC] Stat 05/03/19 12:30 CULTURE URINE [RM] Routine - Assessment/Plan Last 24 Hours: My Active Orders 05/03/19 11:41 Sodium Chloride 0.9% [Saline Flush] 10 ml FLUSH ASDIRECTED PRN Sodium Chloride 0.9% [Saline Flush] 2.5 ml FLUSH ASDIRECTED PRN 05/03/19 11:42 Saline Lock Insert [OM.PC] Stat 05/03/19 12:30 CULTURE URINE [RM] Routine
--- NOTE | 2019-05-03 13:58 | CT ---
CT abdomen and pelvis Technique: Multiple axial sections were obtained from above the dome of the diaphragm inferiorly through the pubic symphysis. Intravenous and oral contrast was not utilized. Comparison: Prior CT abdomen and pelvis exam of 11/13/18. Findings: Visualized lung bases show nothing acute. Cyst is noted within the anterior right lobe measuring 8 mm. No additional abnormality is appreciated within the liver. Spleen appears within normal limits. No adrenal nodule is seen. No abnormal calcifications are seen along the course of the ureters. No bladder calculi are seen. No inflammatory change is appreciated around the kidneys. Pancreas appears within normal limits. Gallbladder contains no calcified gallstones. Aorta shows no aneurysm. No retroperitoneal adenopathy or mesenteric abnormalities are seen. No pelvic mass or adenopathy is seen. No free fluid or inflammatory change is seen within the abdomen or pelvis. Appendix is seen which is normal in size. Bone window settings were reviewed which appear within normal limits for the patient's age. Impression: 1. Small liver cyst. 2. Nothing acute is appreciated on noncontrast CT study of the abdomen and pelvis. Diagnostic code #2 MTDD
== END 2019-05-03 14:31 | disposition home or self-care (01) ==
LOC: MW.ED 11:21
DX: N10 Acute pyelonephritis (principal)
CPT/HCPCS: 36415; 74176; 80053; 81001; 85025; 86850; 86900; 86901; 87086; 87088; 87186; 96361; 96365; 96375; 99284; J0696; J1885; J2405; J7040

== ENCOUNTER 2022-07-24 20:31 | Emergency (ER) | payer BC, OTHER ==
[2022-07-24] MEDS ORDERED: LORazepam 2 MG/ML SDV IVPUSH ONE (20:35)
[2022-07-24] MEDS ORDERED: Iopamidol 755 MG/ML 500 ML Multipack Bottle IVPUSH ONE (21:18)
[2022-07-24 21:35] LABS: ACETAMINOPHEN <2.0 ug/mL
[2022-07-24 21:46] LABS: BLOOD UREA NITROGEN,BUN 16 mg/dL (7.0-18.0); CARBON DIOXIDE,CO2 27.1 mmol/L (21.0-32.0); CHLORIDE,CL 103 mmol/L (98-107); GLUCOSE RANDOM 100 mg/dL (74-106); POTASSIUM,K 3.8 mmol/L (3.5-5.1); SODIUM,NA 139 mmol/L (136-145)
[2022-07-24 21:51] LABS: ESTIMATED GFR 102 mL/min (>60)
[2022-07-25 01:54] LABS: ACETAMINOPHEN <2.0 ug/mL
[2022-07-25] MEDS: Acetaminophen 500 MG Tab PO ONE ×2 (04:17→04:19)
[2022-07-25] MEDS ORDERED: LORazepam 2 MG/ML SDV IVPUSH STA (05:06)
[2022-07-25] MEDS ORDERED: LORazepam 2 MG/ML SDV ONE (05:07)
== END 2022-07-25 09:31 ==
LOC: MW.ED 20:31
DX: T14.91XA Suicide attempt, initial encounter (principal)
CPT/HCPCS: 36415; 70450; 70496; 70498; 80053; 80143; 80179; 80305; 80307; 81003; 82550; 83605; 83735; 84443; 84703; 85025; 85610; 87635; 93005; 96374; 96376; 99285; J2060; Q9967; 93010; A9270-GY; U0002